=== PATIENT | male | born 1980 | race Caucasian/White ===

== ENCOUNTER 2016-05-07 10:14 | Emergency (ER) | payer MEDICAID ==
[2016-05-07 10:43] VITALS: BP 149/98; PULSE 103; RESP 16; TEMP 98.2; O2SAT 94
--- NOTE | 2016-05-07 11:11 | UCPHY ---
H & P Time Seen by Provider: 05/07/16 10:37 Patient Type: New HPI/ROS: This patient complains of right knee pain spontaneous onset over the past 4 days. He awakened Thursday at his usual time with the pain that has been increasing since then and is described as achy in nature. He has partial relief from ibuprofen-last dose at 2:30 a.m. 800 mg. He also has partial relief with flexion of the knee and worsening with walking. At baseline currently the pain is 7/10. He notes mild swelling to the affected area which is the inferior border of the patella extending to the patellar ligament region. ROS: No fevers or other constitutional symptoms. No HEENT complaints no cardiopulmonary complaints. Musculoskeletal-no other joint pain. 7 point ROS is otherwise negative Past Medical/Surgical History: He is otherwise healthy. Social History: He drinks alcohol socially typically 3 or 4 drinks a week. He did drink on Marika. He smokes marijuana. Denies any other drug use. Does smoke cigarettes Smoking Status: Current every day smoker Physical Exam: Physical Exam Vital signs are normal. General: Pleasant mildly obese 35-year-old male No acute distress HEENT: Atraumatic. Eyes: Pupils equal and react to light. Extraocular motions are intact. Lungs: No respiratory distress. Cardiac: Brisk capillary refill is intact throughout. Pulses are 2+ and symmetric in the affected extremity. Extremities: Atraumatic normal except for right knee Right knee: Patient has mild swelling just inferior to the patella with associated warmth to touch and mild erythema to the skin that is very subtle. No fluctuant lesions. No luda joint effusion maintains full range of motion. There is no laxity with Carole's, varus or valgus stress and no increased pain with those maneuvers. Skin: No rash or pallor. Neuro: Alert with no sensorimotor deficits. Initial differential diagnosis: Cellulitis, gout, pseudogout, bursitis Constitutional: Initial Vital Signs Temperature (C) 36.8 C 05/07/16 10:41 Heart Rate 103 H 05/07/16 10:41 Respiratory Rate 16 05/07/16 10:41 Blood Pressure 149/98 H 05/07/16 10:41 O2 Sat (%) 94 05/07/16 10:41 O2 Delivery Mode Room Air Allergies/Adverse Reactions: Penicillins Allergy (Intermediate, Verified 05/07/16 10:44) Rash Home Medications: Medication Instructions Recorded NO HOME MEDS 08/22/09 Hydrocodone/APAP 5/325 [Dora 1 - 2 tab PO Q4PRN PRN #18 tab 05/07/16 5/325 (*)] Indomethacin [Indocin 25 mg (RX)] 50 mg PO TID PRN #50 cap 05/07/16 MDM/Departure - MDM Medications Given: Discontinued Medications Ibuprofen (Motrin) 800 mg PO EDNOW ONE Stop: 05/07/16 11:25 Last Admin: 05/07/16 11:31 Dose: 800 mg ED Course/Re-evaluation: Ibuprofen I counseled patient regarding his lab tests-normal CBC, ESR and uric acid. Discussion: Given his findings and the most likely diagnosis is prepatellar bursitis. However gout is also possibility of of the location is not classic. Counseled him regarding this. - Depart Disposition: Home, Routine, Self-Care Clinical Impression: Patellar bursitis of right knee Condition: Good Instructions: Knee Bursitis (ED) Additional Instructions: Diagnosis: Patellar bursitis Differential diagnosis could also include gout although the location with in her knees a bit atypical for that diagnosis Plan: David wrap Continue ibuprofen or try Indocin anti-inflammatory prescribed Decrease your meat and alcohol intake. Increased fluids Tylenol or Vicodin in addition for pain control as needed Call your primary physician to arrange follow-up appointment for further evaluation for recheck in 5-10 days Return here or to the emergency department for any significant worsening despite the treatment plan Prescriptions: Indomethacin [Indocin 25 mg (RX)] 50 mg PO TID PRN #50 cap PRN Reason: pain Hydrocodone/APAP 5/325 [Dora 5/325 (*)] 1 - 2 tab PO Q4PRN PRN #18 tab PRN Reason: Pain Referrals: NONE *PRIMARY CARE P,. [Primary Care Provider] - As per Instructions - PQRS PQRS Measurement: NA
[2016-05-07 11:16] LABS: % IMMATURE GRANULYOCYTES 0.2 % (0.0-1.1); ABSOLUTE IMMATURE GRANULOCYTES 0.02 10^3/uL (0.00-0.10); ADD DIFF? NO; ADD MORPH? NO; ADD SCAN? NO; ATYPICAL LYMPHOCYTE FLAG 0 (0-99); FRAGMENT RBC FLAG 0 (0-99); HEMATOCRIT 44.4 % (40.0-51.0); HEMOGLOBIN 15.8 g/dL (13.7-17.5); LEFT SHIFT FLG 0 (0-99); LIPEMIA HEMOLYSIS FLAG 90 (0-99); MEAN CELL HEMOGLOBIN 31.1 pg (27.9-34.1); MEAN CELL HEMOGLOBIN CONCENTR. 35.6 g/dL (32.4-36.7); MEAN CELL VOLUME 87.4 fL (81.5-99.8); MEAN PLATELET VOLUME 9.5 fL (8.7-11.7); PLATELET CLUMPS FLAG 0 (0-99); PLATELET COUNT 229 10^3/uL (150-400); RED BLOOD CELL COUNT 5.08 10^6/uL (4.40-6.38); RED CELL DISTRIBUTION WIDTH 11.9 % (11.5-15.2)
[2016-05-07] MEDS ORDERED: IBUPROFEN 800 MG TAB PO ONE (11:24)
[2016-05-07 11:30] LABS: SEDIMENTATION RATE 11 MM/HR (0-15)
== END 2016-05-07 12:21 | disposition home or self-care (01) ==
LOC: CED 10:14
DX: M70.41 Prepatellar bursitis, right knee (principal); Z72.0 Tobacco use
CPT/HCPCS: 84550-PO; 85025-PO; 85652-PO; 99203-PO; G0463-PO

== ENCOUNTER 2016-12-10 07:48 | Emergency (ER) | payer MEDICAID ==
[2016-12-10 08:03] VITALS: PULSE 87; RESP 18; TEMP 98; O2SAT 94
--- NOTE | 2016-12-10 08:10 | EDPHY ---
H & P Time Seen by Provider: 12/10/16 07:54 HPI/ROS: 36-year-old male presents complaining of left foot pain that began late Thursday evening and has worsened leading up to this morning where he has complaint of redness and swelling on the top of his left foot. He denies injury. He does wear boots for work and to works long hours. No fever or chills. No history of gout Review of systems As per HPI-foot pain General no fever no chills no weakness HEENT no eye pain no eye discharge. No eye redness, no sore throat Respiratory no cough, no shortness of breath Cardiac no chest pain, no peripheral edema GI no abdominal pain, no diarrhea, no constipation, no nausea, no vomiting no flank pain, no hematuria, no dysuria Musculoskeletal no myalgias, no joint pain Heme no easy bruising, no easy bleeding Endo no polyuria, no polydipsia Skin positive rashes, no pruritus Neuro no syncope, no dizziness, no headaches Psych is no suicidal ideation, no homicidal ideation Past Medical/Surgical History: Noncontributory Social History: Alcohol socially, denies drug use Smoking Status: Current every day smoker Physical Exam: 36-year-old male Alert and oriented in no acute distress nontoxic appearance, afebrile Atraumatic normocephalic Neck no JVD Lungs clear to auscultation, no respiratory distress Heart regular rate and rhythm Extremities no cyanosis clubbing edema Except left foot Dorsum of left foot, proximal aspect of dorsum of foot with erythema, very minimal swelling, no fluctuance Pain worsened with dorsiflexion, no lymphangitic streaks, no ankle pain, no toe pain Full range of motion of toes , ankle, knee Constitutional: Initial Vital Signs Temperature (C) 36.6 C 12/10/16 07:59 Heart Rate 87 12/10/16 07:59 Respiratory Rate 18 12/10/16 07:59 Blood Pressure 150/100 H 12/10/16 07:59 O2 Sat (%) 94 12/10/16 07:59 O2 Delivery Mode Room Air Allergies/Adverse Reactions: Penicillins Allergy (Intermediate, Verified 05/07/16 10:44) Rash Home Medications: Medication Instructions Recorded NO HOME MEDS 08/22/09 Cephalexin 500 mg PO QID #28 tablet 12/10/16 traMADol [Ultram 50 mg (*)] 50 mg PO Q6 #12 tab 12/10/16 Medical Decision Making - Diagnostics Imaging Results: Imaging Impressions Foot X-Ray 12/10/16 08:05 Impression: No acute osseous abnormality. ED Course/Re-evaluation: Patient seen and evaluated for left foot pain and redness. Left foot x-ray Negative for fracture Differential diagnosis Cellulitis, tendinitis, gout, abscess, insect bite Physical exam significant for redness and very minimal swelling on proximal aspect of dorsum of left foot Impression Cellulitis, early, left foot Plan Cephalexin 500 QID x 7 days Continue ibuprofen Tramadol 50 mg Q6 x 3 days, # 12 Follow up with pcp or podiatry. Departure - Departure Disposition: Home, Routine, Self-Care Clinical Impression: Cellulitis of left foot excluding toes Condition: Good Instructions: Cellulitis (ED) Additional Instructions: Ibuprofen, you may take 600 mg every 6 hours as needed for pain, you must have food or milk in her stomach when taking ibuprofen. Referrals: KEITH ROBERT [Other] - As per Instructions Elaine Che DPM [Doctor of Podiatric Medicine] - As per Instructions Prescriptions: Cephalexin 500 mg PO QID #28 tablet traMADol [Ultram 50 mg (*)] 50 mg PO Q6 #12 tab
[2016-12-10 08:37] VITALS: BP 122/90
== END 2016-12-10 08:34 | disposition home or self-care (01) ==
LOC: CED 07:48
DX: L03.116 Cellulitis of left lower limb (principal); F17.200 Nicotine dependence, unspecified, uncomplicated
CPT/HCPCS: 73620-PO